=== PATIENT | male | born 1985 | race American Indian/Alaskan Native ===

== ENCOUNTER 2017-10-30 03:07 | Emergency (ER) | payer MEDICAID ==
[2017-10-30 03:20] VITALS: BMI 38.2
--- NOTE | 2017-10-30 03:29 | C.PDOC ---
History Of Present Illness 32 year old male presents to the ER with a complaint of feeling depressed and hearing voices. Patient admits to drug use today; denies physical complaints at this time. Time Seen by Provider: 10/30/17 03:28 Chief Complaint (Nursing): Psychiatric Evaluation History Per: Patient History/Exam Limitations: no limitations Onset/Duration Of Symptoms: Days Current Symptoms Are (Timing): Still Present Suicide/Self Injury Attempted (Context): None Modifying Factor(s): Other (Drugs) Severity: None Pain Scale Rating Of: 0 Associated Symptoms: Depression, Other (hearing voices) Involuntary Hold By: None Recent travel outside of the [place]: No Past Medical History Reviewed: Historical Data, Nursing Documentation, Vital Signs Vital Signs: Last Vital Signs Temp 98.6 F 10/30/17 05:52 Pulse 96 H 10/30/17 05:52 Resp 16 10/30/17 05:52 BP 139/81 10/30/17 05:52 Pulse Ox 100 10/30/17 06:14 - Medical History PMH: Schizophrenia Surgical History: No Surg Hx Family History: States: Unknown Family Hx - Social History Hx Alcohol Use: Yes Hx Substance Use: Yes Review Of Systems Constitutional: Negative for: Fever, Chills Gastrointestinal: Negative for: Nausea, Vomiting, Diarrhea Psych: Positive for: Depression, Other (Hearing voices) Physical Exam - Physical Exam Appears: Non-toxic Skin: Warm, Dry Head: Normacephalic Oral Mucosa: Moist Chest: Symmetrical, No Tenderness Cardiovascular: Rhythm Regular Respiratory: No Rales, No Rhonchi, No Wheezing Gastrointestinal/Abdominal: Soft, No Tenderness Neurological/Psych: Oriented x3 ED Course And Treatment - Laboratory Results Result Diagrams: 10/30/17 03:29 10/30/17 03:29 ECG: Interpreted By Me, Viewed By Me ECG Rhythm: Sinus Rhythm (91), Nonspecific Changes O2 Sat by Pulse Oximetry: 100 (Room air) Pulse Ox Interpretation: Normal - Radiology CXR: Interpreted by Me, Viewed By Me CXR Interpretation: No: Infiltrates, Fracture, Pnemothorax Progress Note: Blood work and urinalysis ordered. Crisis notified. Pt was accepted in transfet to [facility] by dr Moody Disposition Counseled Patient/Family Regarding: Studies Performed, Diagnosis - Disposition Disposition: OTHER INSTITUTION Disposition Time: 03:28 Condition: FAIR Instructions: Schizophrenia (ED), Abuse of Alcohol (ED) Forms: [facility] (Salvadorean) - Clinical Impression Clinical Impression: Alcohol intoxication, Alcohol abuse, Schizophrenia - Scribe Statement The provider has reviewed the documentation as recorded by the Scribsandi Lorenzo All medical record entries made by the Scribe were at my direction and personally dictated by me. I have reviewed the chart and agree that the record accurately reflects my personal performance of the history, physical exam, medical decision making, and the department course for this patient. I have also personally directed, reviewed, and agree with the discharge instructions and disposition. Physician Patient Turnover Patient Signed Over To: Gene Hong DO Handoff Comments: pending transfer to [facility]
[2017-10-30 03:33] LABS: BASO # 0.1 K/uL (0.0-0.2); BASO % 0.8 % (0.0-2.0); HEMATOCRIT 49.9 % (35.0-51.0); LYMPH # 2.5 K/uL (1.0-4.3); LYMPH % 19.9 % (20.0-40.0); MEAN CELL VOLUME 89.6 fL (80.0-94.0); MEAN CORPUSCULAR HEMOGLOBIN 30.2 pg (27.0-31.0); MEAN CORPUSCULAR HGB CONC 33.7 g/dL (33.0-37.0); MEAN PLATELET VOLUME 8.6 fL (7.2-11.7); MONO # 0.9 K/uL (0.0-0.8); MONO % 7.3 % (0.0-10.0); WHITE BLOOD COUNT 12.8 K/uL (4.8-10.8)
[2017-10-30 03:47] LABS: ALB/GLOB RATIO 1.4 (1.0-2.1); ALCOHOL SERUM 66 mg/dl (0-10); ALKALINE PHOSPHATASE 61 U/L (38-126); ALT/SGPT 45 U/L (21-72); AST/SGOT 32 U/L (17-59); BILIRUBIN,TOTAL 0.6 mg/dL (0.2-1.3); BLOOD UREA NITROGEN 11 mg/dL (9-20); CALCIUM 8.7 mg/dl (8.6-10.4); CARBON DIOXIDE 24 mmol/L (22-30); CHLORIDE 106 mmol/L (98-107); GFR AFRICAN-AMERICAN > 60; GLUCOSE,RANDOM 105 mg/dL (75-110); POTASSIUM 3.8 mmol/L (3.6-5.2); SODIUM 145 mmol/L (132-148)
[2017-10-30 04:34] LABS: RBC URINE 1 /hpf (0-3); URINE BILIRUBIN NEGATIVE (NEGATIVE); URINE BLOOD NEGATIVE (NEGATIVE); URINE COLOR Yellow (YELLOW); URINE GLUCOSE (UA) NORMAL (Normal); URINE KETONE TRACE mg/dL (NEGATIVE); URINE LEUKOCYTE ESTERASE NEG Leu/uL (Negative); URINE PROTEIN 1+ mg/dL (NEGATIVE); URINE UROBILINOGEN NORMAL mg/dL (0.2-1.0); WBC URINE 2 /hpf (0-5)
[2017-10-30 07:31] VITALS: RESP 18
--- NOTE | 2017-10-30 09:01 | RAD ---
HISTORY: Medical Clearance COMPARISON: No prior. FINDINGS: LUNGS: The lungs are well inflated and clear. PLEURA: No significant pleural effusion identified, no pneumothorax apparent. CARDIOVASCULAR: Normal. OSSEOUS STRUCTURES: No significant abnormalities. VISUALIZED UPPER ABDOMEN: Normal. OTHER FINDINGS: None. IMPRESSION: No active pulmonary disease.
[2017-10-30 09:40] VITALS: BP 145/92; PULSE 102; TEMP 98; O2SAT 98
--- NOTE | 2017-11-02 12:27 | CARD ---
APPROVED REPORT EKG Measurement Heart [id number] <Conclusion> Normal sinus rhythm Normal ECG
== END 2017-10-30 09:50 | disposition short-term general hospital (02) ==
LOC: C.ER 03:07
DX: F20.9 Schizophrenia, unspecified (principal); F10.129 Alcohol abuse with intoxication, unspecified; Y90.3 Blood alcohol level of 60-79 mg/100 ml

== ENCOUNTER 2017-11-03 19:17 | Inpatient (IN) | payer MEDICAID ==
[2017-11-03 19:17] VITALS: BMI 38.2
[2017-11-03 21:34] LABS: BASO # 0.1 K/uL (0.0-0.2); EOS # 0.1 K/uL (0.0-0.7); EOS % 0.7 % (0.0-4.0); HEMATOCRIT 44.8 % (35.0-51.0); LYMPH # 4.7 K/uL (1.0-4.3); LYMPH % 31.4 % (20.0-40.0); MEAN CELL VOLUME 90.1 fL (80.0-94.0); MEAN CORPUSCULAR HEMOGLOBIN 30.5 pg (27.0-31.0); MEAN CORPUSCULAR HGB CONC 33.9 g/dL (33.0-37.0); MEAN PLATELET VOLUME 8.7 fL (7.2-11.7); MONO # 1.2 K/uL (0.0-0.8); MONO % 7.8 % (0.0-10.0); NRBC % 0.1 % (0.0-2.0); RED CELL DISTRIBUTION WIDTH 13.6 % (11.5-14.5); WHITE BLOOD COUNT 14.9 K/uL (4.8-10.8)
[2017-11-03 21:50] LABS: ALB/GLOB RATIO 1.6 (1.0-2.1); ALCOHOL SERUM 17 mg/dl (0-10); ALKALINE PHOSPHATASE 66 U/L (38-126); ALT/SGPT 47 U/L (21-72); AST/SGOT 32 U/L (17-59); BILIRUBIN,TOTAL 0.6 mg/dL (0.2-1.3); BLOOD UREA NITROGEN 11 mg/dL (9-20); CALCIUM 8.4 mg/dl (8.6-10.4); CARBON DIOXIDE 26 mmol/L (22-30); CHLORIDE 102 mmol/L (98-107); GFR AFRICAN-AMERICAN > 60; GLUCOSE,RANDOM 115 mg/dL (75-110); POTASSIUM 3.3 mmol/L (3.6-5.2); SODIUM 144 mmol/L (132-148); TOTAL PROTEIN 6.9 g/dL (6.3-8.3)
[2017-11-03 23:10] LABS: RBC URINE 1 /hpf (0-3); URINE BACTERIA RARE (<OCC); URINE BILIRUBIN NEGATIVE (NEGATIVE); URINE BLOOD NEGATIVE (NEGATIVE); URINE COLOR Yellow (YELLOW); URINE GLUCOSE (UA) 1+ mg/dL (Normal); URINE KETONE NEGATIVE (NEGATIVE); URINE LEUKOCYTE ESTERASE NEG Leu/uL (Negative); URINE PROTEIN NEGATIVE (NEGATIVE); URINE UROBILINOGEN NORMAL mg/dL (0.2-1.0); WBC URINE 1 /hpf (0-5)
--- NOTE | 2017-11-03 23:49 | C.PDOC ---
Time Seen by Provider: 11/03/17 20:37 Chief Complaint (Nursing): Psychiatric Evaluation History Per: Patient Onset/Duration Of Symptoms: Days Current Symptoms Are (Timing): Still Present Suicide/Self Injury Attempted (Context): None Modifying Factor(s): Alcohol, Marijuana Severity: Moderate Associated Symptoms: Depression, Paranoia, Suicidal Thoughts Additional History Per: Prior Records Past Medical History Reviewed: Historical Data, Nursing Documentation, Vital Signs Vital Signs: Last Vital Signs Temp 97.6 F 11/03/17 19:28 Pulse 111 H 11/03/17 19:28 Resp 20 11/03/17 19:28 BP 128/84 11/03/17 19:28 Pulse Ox 98 11/03/17 19:28 - Medical History PMH: Depression, Schizophrenia Family History: States: Unknown Family Hx - Social History Hx Tobacco Use: Yes Hx Alcohol Use: Yes Hx Substance Use: Yes - Immunization History Hx Tetanus Toxoid Vaccination: No Hx Influenza Vaccination: No Hx Pneumococcal Vaccination: No Review Of Systems Except As Marked, All Systems Reviewed And Found Negative. Constitutional: Negative for: Fever Cardiovascular: Negative for: Chest Pain Respiratory: Negative for: Shortness of Breath Gastrointestinal: Negative for: Vomiting, Abdominal Pain Musculoskeletal: Negative for: Neck Pain Skin: Negative for: Rash Neurological: Negative for: Weakness, Numbness Psych: Positive for: Psychosis Physical Exam - Physical Exam Appears: Non-toxic, No Acute Distress Skin: Normal Color, Warm, Dry, No Rash Head: Atraumatic, Normacephalic Eye(s): bilateral: PERRL, EOMI Neck: Normal ROM, Supple Cardiovascular: Rhythm Regular Respiratory: Normal Breath Sounds, No Accessory Muscle Use Gastrointestinal/Abdominal: Soft, No Tenderness Back: No CVA Tenderness Extremity: Normal ROM Neurological/Psych: Oriented x3, Normal Motor, Normal Sensation ED Course And Treatment - Laboratory Results Result Diagrams: 11/03/17 21:30 11/03/17 21:30 O2 Sat by Pulse Oximetry: 98 Pulse Ox Interpretation: Normal Progress Note: Pt is medically stable for psychiatric admission. Disposition Counseled Patient/Family Regarding: Studies Performed, Diagnosis, Smoking Cessation - Disposition Disposition: HOSPITALIZED Disposition Time: 23:49 Condition: STABLE - Clinical Impression Clinical Impression: Schizoaffective disorder Decision To Admit - Pt Status Changed To: Hospital Disposition Of: Inpatient - Admit Certification Admit to Inpatient:: After my assessment, the patient will require hospitalization for at least two midnights. This is because of the severity of symptoms shown, intensity of services needed, and/or the medical risk in this patient being treated as an outpatient. - InPatient: Physician Admission Certification: I certify that this patient requires 2 or more midnights of care for the following reason:: Psych. - . Bed Request Type: Psychiatry Admitting Physician: Jacquie Duval Patient Diagnosis: Schizoaffective disorder
[2017-11-04 03:50] VITALS: BP 134/84; PULSE 74; RESP 18; TEMP 97.4; O2SAT 99
[2017-11-04] MEDS ORDERED: Potassium Chloride 20 mEq ER Tab PO ONE (03:54)
[2017-11-04] MEDS ORDERED: Potassium Chloride 10 mEq ER Tab PO STA (03:54)
--- NOTE | 2017-11-04 04:16 | PCM.BM ---
Treatment Plan Problems - Problems identified on initial assessmt Suicidal Ideation Date Initiated: 11/04/17 Time Initiated: 04:10 Assessment reference: NA Status: Active Depression Date Initiated: 11/04/17 Time Initiated: 04:10 Assessment reference: NA Status: Active Auditory Hallucinations Date Initiated: 11/04/17 Time Initiated: 04:10 Assessment reference: NA Status: Active Substance Abuse Date Initiated: 11/04/17 Time Initiated: 04:10 Assessment reference: NA Status: Active Treatment assets and liabiliti Patient Assests: cooperative, ADL independent, negotiates basic needs Patient Liabilities: live alone, financial problems, substance abuse - Milieu Protocol Maintain good personal hygiene: daily Encourage regular showers, daily Remind patient to perform daily oral care, daily Assist patient to perform ADL's Conduct patient checks and document Observation sheet: Q15 minutes Maintain personal safety: every shift Educate patient to report safety concerns to staff, every shift Monitor environment for contraband/sharps Medication safety: Monitor for expected outcome, potential side effects: every shift, Assess barriers to learning: every shift, Assess readiness for medication education: every shift
[2017-11-07] MEDS ORDERED: Influenza Vaccine 60 mcg/0.5 mL SYR (4YR UP) IM ONE (10:00)
[2017-11-07] MEDS ORDERED: Pneumococcal 23-Valent Vaccine IM ONE (10:00)
== END 2017-11-04 17:00 | disposition left against medical advice (07) | DRG 430 ==
LOC: C.ER 19:17 → C.9E 23:49 → C.5E 11-04 03:44
PROVIDERS: ADMIT Psychiatry & Neurology Psychiatry; ATTEND Psychiatry & Neurology Psychiatry
DX: F25.9 Schizoaffective disorder, unspecified (principal); R45.851 Suicidal ideations; Z87.891 Personal history of nicotine dependence

== ENCOUNTER 2017-11-07 02:37 | Emergency (ER) | payer MEDICAID ==
[2017-11-07 02:37] VITALS: BMI 38.2
[2017-11-07 03:42] LABS: BASO # 0.1 K/uL (0.0-0.2); BASO % 0.4 % (0.0-2.0); EOS # 0.2 K/uL (0.0-0.7); EOS % 1.8 % (0.0-4.0); HEMATOCRIT 42.1 % (35.0-51.0); LYMPH # 3.8 K/uL (1.0-4.3); LYMPH % 33.3 % (20.0-40.0); MEAN CORPUSCULAR HEMOGLOBIN 30.8 pg (27.0-31.0); MEAN CORPUSCULAR HGB CONC 34.3 g/dL (33.0-37.0); MEAN PLATELET VOLUME 8.5 fL (7.2-11.7); RED CELL DISTRIBUTION WIDTH 13.6 % (11.5-14.5); WHITE BLOOD COUNT 11.4 K/uL (4.8-10.8)
[2017-11-07 04:06] LABS: BLOOD UREA NITROGEN 11 mg/dL (9-20); GFR AFRICAN-AMERICAN > 60; GLUCOSE,RANDOM 88 mg/dL (75-110); POTASSIUM 3.5 mmol/L (3.6-5.2); SODIUM 139 mmol/L (132-148)
[2017-11-07 04:07] LABS: ALB/GLOB RATIO 1.6 (1.0-2.1); BILIRUBIN,TOTAL 0.8 mg/dL (0.2-1.3); CARBON DIOXIDE 23 mmol/L (22-30); CHLORIDE 105 mmol/L (98-107); TOTAL PROTEIN 6.3 g/dL (6.3-8.3)
[2017-11-07 04:08] LABS: ALCOHOL SERUM < 10 mg/dl (0-10); ALKALINE PHOSPHATASE 70 U/L (38-126); ALT/SGPT 56 U/L (21-72); AST/SGOT 43 U/L (17-59)
[2017-11-07 04:54] VITALS: BP 126/78; PULSE 76; RESP 18; TEMP 99.1; O2SAT 98
--- NOTE | 2017-11-07 05:47 | C.PDOC ---
History Of Present Illness 32 year old male presents to the ER stating he is hearing voices and has thoughts of suicide. Patient denies physical complaints a this time. As per crisis patient was administratively discharged 3 days ago from the psychiatric floor for threatening behavior towards staff. Patient also recently went to [facility] [facility] where he was discharged. Chief Complaint (Nursing): Psychiatric Evaluation History Per: Patient History/Exam Limitations: no limitations Onset/Duration Of Symptoms: Days Current Symptoms Are (Timing): Still Present Suicide/Self Injury Attempted (Context): None Associated Symptoms: Suicidal Thoughts, Other (Hearing voices). denies: Depression Involuntary Hold By: None Recent travel outside of the [place]: No Past Medical History Reviewed: Historical Data, Nursing Documentation, Vital Signs Vital Signs: Last Vital Signs Temp 99.1 F 11/07/17 04:53 Pulse 76 11/07/17 04:53 Resp 18 11/07/17 04:53 BP 126/78 11/07/17 04:53 Pulse Ox 98 11/07/17 05:52 - Medical History PMH: Depression, Schizophrenia Family History: States: Unknown Family Hx - Social History Hx Tobacco Use: Yes Hx Alcohol Use: Yes Hx Substance Use: Yes - Immunization History Hx Tetanus Toxoid Vaccination: No Hx Influenza Vaccination: No Hx Pneumococcal Vaccination: No Review Of Systems Constitutional: Negative for: Fever, Chills Cardiovascular: Negative for: Chest Pain Respiratory: Negative for: Shortness of Breath Gastrointestinal: Negative for: Nausea, Vomiting Psych: Positive for: Suicidal ideation, Other (Hearing voices) Physical Exam - Physical Exam Appears: Non-toxic, No Acute Distress Skin: Normal Color, Warm, Dry Head: Atraumatic, Normacephalic Eye(s): bilateral: Normal Inspection Oral Mucosa: Moist Chest: Symmetrical, No Tenderness Cardiovascular: Rhythm Regular Respiratory: Normal Breath Sounds, No Rales, No Rhonchi, No Wheezing Gastrointestinal/Abdominal: Soft, No Tenderness Neurological/Psych: Oriented x3, Normal Speech ED Course And Treatment - Laboratory Results Result Diagrams: 11/07/17 03:30 11/07/17 03:30 O2 Sat by Pulse Oximetry: 98 (room air) Pulse Ox Interpretation: Normal Progress Note: Blood work and urinalysis ordered. Crisis notified. Disposition - Disposition Referrals: [facility] [Outside] [facility] [Outside] Disposition: HOME/ ROUTINE Disposition Time: 03:30 Condition: GOOD Additional Instructions: Thank you for letting us take care of you today. The emergency medical care you received today was directed at your acute symptoms. If you were prescribed any medication, please fill it and take as directed. It may take several days for your symptoms to resolve. Return to the Emergency Department if your symptoms worsen, do not improve, or if you have any other problems. Please contact your doctor or call one of the physicians/clinics you have been referred to that are listed on the Patient Visit Information form that is included in your discharge packet. Bring any paperwork you were given at discharge with you along with any medications you are taking to your follow up visit. Our treatment cannot replace ongoing medical care by a primary care provider (PCP) outside of the emergency department. Thank you for allowing the [facility] team to be part of your care today. Follow up in the clinic in 3-5 days for outpatient care and further management. Instructions: Depression (ED) Forms: [facility] (Sami) - Clinical Impression Clinical Impression: Schizoaffective disorder - Scribe Statement The provider has reviewed the documentation as recorded by the Scribsandi Lorenzo All medical record entries made by the Scribe were at my direction and personally dictated by me. I have reviewed the chart and agree that the record accurately reflects my personal performance of the history, physical exam, medical decision making, and the department course for this patient. I have also personally directed, reviewed, and agree with the discharge instructions and disposition.
== END 2017-11-07 05:09 | disposition home or self-care (01) ==
LOC: C.ER 02:37
DX: F25.9 Schizoaffective disorder, unspecified (principal)

== ENCOUNTER 2019-02-07 20:33 | Emergency (ER) | payer MEDICAID ==
[2019-02-07 20:35] VITALS: BMI 38.2
--- NOTE | 2019-02-07 23:43 | C.PDOC ---
History Of Present Illness 33 year old male is brought to the ED by EMS for public intoxication. Patient was picked up intoxicated in the street, patient admits to drinking alcohol today. Patient denies SI/HI, hallucinations, injury, fall, trauma. Time Seen by Provider: 02/07/19 20:47 Chief Complaint (Nursing): Substance Abuse History Per: Patient, EMS History/Exam Limitations: intoxication Onset/Duration Of Symptoms: Hrs Current Symptoms Are (Timing): Still Present Suicide/Self Injury Attempted (Context): None Modifying Factor(s): Alcohol Associated Symptoms: denies: Depression, Suicidal Thoughts, Suicidal Plan Recent travel outside of the [place]: No Additional History Per: Patient, EMS Past Medical History Reviewed: Historical Data, Nursing Documentation, Vital Signs Vital Signs: Last Vital Signs Temp 98.3 F 02/07/19 22:41 Pulse 89 02/07/19 22:41 Resp 20 02/07/19 22:41 BP 123/71 02/07/19 22:41 Pulse Ox 98 02/07/19 22:41 - Medical History PMH: Depression, Schizophrenia Denies: Diabetes, Hepatitis, HIV, HTN, Chronic Kidney Disease, Seizures, Sexually Transmitted Disease Surgical History: No Surg Hx - [facility] Procedures GROUP PSYCHOTHERAPY (11/13/17) INDIV PSYCHOTHERAPY FOR SUBSTANCE ABUSE, COGNITIV BEHAVIORAL (11/13/17) INDIVIDUAL PSYCHOTHERAPY, COGNITIVE-BEHAVIORAL (11/13/17) Family History: States: Unknown Family Hx - Social History Hx Tobacco Use: Yes Hx Alcohol Use: Yes Hx Substance Use: Yes - Immunization History Hx Tetanus Toxoid Vaccination: No Hx Influenza Vaccination: No Hx Pneumococcal Vaccination: No Review Of Systems Constitutional: Negative for: Fever, Chills Eyes: Negative for: Vision Change Cardiovascular: Negative for: Chest Pain Respiratory: Negative for: Shortness of Breath Gastrointestinal: Negative for: Nausea, Vomiting, Abdominal Pain Skin: Negative for: Rash Neurological: Negative for: Weakness, Numbness Psych: Negative for: Depression, Suicidal ideation Physical Exam - Physical Exam Appears: Non-toxic, No Acute Distress, Other (intoxicated) Skin: Normal Color, Warm, Dry Head: Atraumatic, Normacephalic Eye(s): bilateral: Normal Inspection Neck: Normal ROM, Supple Chest: Symmetrical Cardiovascular: Rhythm Regular Respiratory: Normal Breath Sounds, No Rales, No Rhonchi, No Wheezing Gastrointestinal/Abdominal: Soft, No Tenderness Extremity: Normal ROM, No Tenderness Neurological/Psych: Oriented x3, Other (intoxicated) Gait: Steady ED Course And Treatment O2 Sat by Pulse Oximetry: 98 (ON RA) Pulse Ox Interpretation: Normal Medical Decision Making Medical Decision Making: Assessment: Alcohol intoxication Disposition Discussed With : Tanvir Yuan - Disposition Disposition Time: 23:55 Condition: STABLE Forms: [facility] (Citizen Of [place]) - Clinical Impression Clinical Impression: Alcohol intoxication - Scribe Statement The provider has reviewed the documentation as recorded by the Scribe Titus Morin All medical record entries made by the Scribe were at my direction and personally dictated by me. I have reviewed the chart and agree that the record accurately reflects my personal performance of the history, physical exam, medical decision making, and the department course for this patient. I have also personally directed, reviewed, and agree with the discharge instructions and disposition. Physician Patient Turnover Patient Signed Over To: Tanvir Yuan Handoff Comments: Pending sobriety and dispo
[2019-02-08 05:50] VITALS: BP 133/73; PULSE 86; RESP 20; TEMP 98; O2SAT 98
== END 2019-02-08 05:50 | disposition home or self-care (01) ==
LOC: C.ER 20:33
DX: F10.129 Alcohol abuse with intoxication, unspecified (principal); Y90.9 Presence of alcohol in blood, level not specified

== ENCOUNTER 2019-02-25 17:43 | Emergency (ER) | payer MEDICAID ==
[2019-02-25 18:02] VITALS: BMI 37.3
[2019-02-25 18:11] VITALS: BP 120/84; PULSE 93; RESP 19; TEMP 98.9; O2SAT 98
== END 2019-02-25 18:35 | disposition left against medical advice (07) ==
LOC: C.ER 17:43
DX: Z02.89 Encounter for other administrative examinations (principal); R44.0 Auditory hallucinations

== ENCOUNTER 2019-03-21 23:20 | Inpatient (IN) | payer MEDICAID, OTHER ==
[2019-03-21 23:21] VITALS: BMI 37.3
--- NOTE | 2019-03-21 23:38 | C.PDOC ---
History Of Present Illness Patient presents as a transfer from [facility] where is was medically cleared and accepted in transfer for psych admission. No physical complaints at this time. Time Seen by Provider: 03/21/19 23:38 Chief Complaint (Nursing): Psychiatric Evaluation History Per: Other ([facility]) History/Exam Limitations: no limitations Onset/Duration Of Symptoms: Hrs Current Symptoms Are (Timing): Still Present Severity: None Pain Scale Rating Of: 0 Involuntary Hold By: None Recent travel outside of the [place]: No Past Medical History Reviewed: Historical Data, Nursing Documentation, Vital Signs Vital Signs: Last Vital Signs Temp 98.4 F 03/21/19 23:26 Pulse 68 03/21/19 23:26 Resp 16 03/21/19 23:26 BP 133/74 03/21/19 23:26 Pulse Ox 97 03/21/19 23:26 - Medical History PMH: Anxiety, Bipolar Disorder, Depression, Schizophrenia Denies: Diabetes, Hepatitis, HIV, HTN, Chronic Kidney Disease, Seizures, Sexually Transmitted Disease - [facility] Procedures GROUP PSYCHOTHERAPY (11/13/17) INDIV PSYCHOTHERAPY FOR SUBSTANCE ABUSE, COGNITIV BEHAVIORAL (11/13/17) INDIVIDUAL PSYCHOTHERAPY, COGNITIVE-BEHAVIORAL (11/13/17) MEDICATION MANAGEMENT (03/14/19) Family History: States: No Known Family Hx - Social History Hx Tobacco Use: Yes Hx Alcohol Use: Yes Hx Substance Use: Yes (MARIJUANA, COCAINE) - Immunization History Hx Tetanus Toxoid Vaccination: No Hx Influenza Vaccination: No Hx Pneumococcal Vaccination: No Review Of Systems Constitutional: Negative for: Fever, Chills Cardiovascular: Negative for: Chest Pain, Palpitations Respiratory: Negative for: Cough, Shortness of Breath Gastrointestinal: Negative for: Nausea, Vomiting Neurological: Negative for: Weakness, Numbness Physical Exam - Physical Exam Appears: Non-toxic Skin: Warm, Dry Head: Normacephalic Oral Mucosa: Moist Chest: Symmetrical, No Tenderness Cardiovascular: Rhythm Regular Respiratory: No Rales, No Rhonchi, No Wheezing Gastrointestinal/Abdominal: Soft, No Tenderness Neurological/Psych: Oriented x3 ED Course And Treatment O2 Sat by Pulse Oximetry: 97 (room air) Pulse Ox Interpretation: Normal Disposition Discussed With : Ayah Finney Comment: accepted the pt on his service and took over the care at 11:40 PM Doctor Will See Patient In The: Hospital Counseled Patient/Family Regarding: Studies Performed, Diagnosis - Disposition Disposition: HOSPITALIZED Disposition Time: 23:38 Condition: FAIR Forms: [facility] (Polish) - POA Present On Arrival: None - Clinical Impression Clinical Impression: Major depression - Scribe Statement The provider has reviewed the documentation as recorded by the Scribe Felix Lorenzo All medical record entries made by the Scribe were at my direction and personally dictated by me. I have reviewed the chart and agree that the record accurately reflects my personal performance of the history, physical exam, medical decision making, and the department course for this patient. I have also personally directed, reviewed, and agree with the discharge instructions and disposition. Decision To Admit - Pt Status Changed To: Hospital Disposition Of: Inpatient - Admit Certification Admit to Inpatient:: After my assessment, the patient will require hospitalization for at least two midnights. This is because of the severity of symptoms shown, intensity of services needed, and/or the medical risk in this patient being treated as an outpatient. - InPatient: Physician Admission Certification: I certify that this patient requires 2 or more midnights of care for the following reason:: After my assessment, the patient will require hospitalization for at least two midnights. This is because of the severity of symptoms shown, intensity of services needed, and/or the medical risk in this patient being treated as an outpatient. - . Bed Request Type: Psychiatry Admitting Physician: Ayah Finney Patient Diagnosis: Major depression
[2019-03-21 23:45] VITALS: RESP 16; O2SAT 97
--- NOTE | 2019-03-22 01:56 | PCM.BM ---
Treatment Plan Problems - Problems identified on initial assessmt INEFFECTIVE COPING Date Initiated: 03/22/19 Time Initiated: 00:25 Assessment reference: NA Status: Active MEDICATION NON-ADHERENCE Date Initiated: 03/22/19 Time Initiated: 00:25 Assessment reference: NA Status: Active Treatment assets and liabiliti Patient Assests: cooperative, self-reliant, ADL independent, negotiates basic needs Patient Liabilities: live alone, physical pain, financial problems, poor support system, substance abuse - Milieu Protocol Maintain good personal hygiene: daily Encourage regular showers, daily Remind patient to perform daily oral care, daily Assist patient to perform ADL's Conduct patient checks and document Observation sheet: Q15 minutes Maintain personal safety: every shift Educate patient to report safety concerns to staff, every shift Monitor environment for contraband/sharps Medication safety: Monitor for expected outcome, potential side effects: every shift, Assess barriers to learning: every shift, Assess readiness for medication education: every shift
[2019-03-22 07:51] VITALS: BP 128/91; PULSE 67; TEMP 97.4
--- NOTE | 2019-03-22 23:58 | PCM.PSYCH ---
Initial Psychiatric Evaluation - Initial Psychiatric Evaluation Type of Admission: Voluntary Legal Status: Capacity Chief Complaint (in patient's own words): "I was having suicidal thoughts" Patient's Reaction to Hospitalization: Patient is a 34-year-old single male with who was referred from [facility] for command auditory hallucinations with suicidal ideation but no plan, he has a long history of mental illness most likely schizoaffective disorder versus schizophrenia, and multiple admissions to psychiatric inpatient units, history of noncompliance with medications and treatment recommendations Patient was seen and examined today in his room, patient refused to get out of the bed and had his head covered with the blanket during evaluation. Patient presented to be irritable, paranoid, was giving only yes or no answers, angry demeanor. Patient reports that he was taking Davy and haldol but these medications made his feet swell, so he stopped taking them. [employer] Work[employer] discussed treatment option, patient but he declined treatment options. Patient reports using cocaine 5 days ago and marijuana as well. He also reports occassional alcohol use. He is single, never and has no children. As per chart, patient has a history of numerous psychiatric admissions both voluntary and involuntary. Patient denies having any history of suicide attempts. Medical history: Patient complained of lower extremity pain and swelling when he takes Davy and Haldol. Family history: Unknown Current Medications: Active Medications Generic Name Dose Route Start Last Admin Trade Name Freq PRN Reason Stop Dose Admin Hydroxyzine HCl 25 mg 03/22/19 22:39 Atarax PO Q6H PRN Anxiety Pneumococcal Polyvalent Vaccine 0.5 ml 03/23/19 10:00 Pneumovax 23 Vaccine IM 03/23/19 10:01 .ONCE ONE Past Psychiatric History - Past Psychiatric History Pertinent Medical Hx (Current Medical&Sleep Prob, Allergies): Allergies Allergy/AdvReac Type Severity Reaction Status Date / Time No Known Allergies Allergy Verified 03/14/19 02:27 No Known Home Med 03/10/19 Review of Systems - Psychiatric Psychiatric: As Per HPI, Abnormal Sleep Pattern, Anxiety, Auditory Hallucinations, Behavioral Changes, Depression, Suicidal Ideation Mental Status Examination - Personal Presentation Personal Presentation: Looks older than stated age - Affect Affect: Constricted - Motor Activity Motor Activity: Calm - Reliability in Providing Information Reliability in Providing Information: Fair - Speech Speech: Coherent - Mood Mood: Depressed - Formal Thought Process Formal Thought Process: No Impairment - Obsessions/Compulsions Obsessions: No Compulsions: No - Cognitive Functions Orientation: Person, Place, Situation, Time Sensorium: Alert Attention/Concentration: Attentive Judgement: Imparied, as evidence by: Poor judgement - Risk Risk: Suicidal DSM 5 DX - DSM 5 DSM 5 Diagnosis: Schizoaffective Disorder, Bipolar Type Cocaine Use Disorder Cannabis Use Disorder] - Recommended/Plan of Treatment Treatment Recommendations and Plan of Treatment: Start medication once patient agrees to psychotropic medications As need medications - Atarax All risks, benefits and alternatives of the meds discussed, and the pt agreed and understood. Attend groups and activities Individual therapy daily Psychoeducation and support daily Encourage compliance with meds and after care Refer to outpatient program Teach healthy lifestyle methods, i.e. diet, exercise, meditation Smoking cessation and patch if needed 34 min Projected ELOS: 5-7 days
[2019-03-23] MEDS ORDERED: Pneumococcal 23-Valent Vaccine IM ONE (10:00)
--- NOTE | 2019-03-23 23:26 | PCM.PYCHDC ---
Mental Status Examination - Mental Status Examination Orientation: Person, Place, Situation, Time Memory: Intact Mood: Neutral Affect: Broad Speech: Appropriate Attention: WNL Concentration: WNL Association: WNL Fund of Knowledge: WNL Formal Thought Process: No Impairment Suicidal Ideation: No Current Homicidal Ideation?: No Discharge Summary - Discharge Note Reason for Hospitalization: Depression Consultations:: List each consultation separately and include: 1. Reason for request. 2. Findings. 3. Follow-up Summary of Hospital Course include:: 1. Description of specific treatment plan utilized for patients during their course of treatmen. 2. Summarize the time- course for resolution of acute symptoms and/or regressed behaviors. 3. Describe issues identified and worked on during hospitalization. 4. Describe medication utilized. 5. Describe medical problems identified and treated. 6. Reassessment of suicide risk - Final Diagnosis (DSM 5) Condition upon Discharge: FAIR Follow-up Treatment Plan: Patient currently denies suicidal ideation, he also denies any delusions, hallucinations, paranoid. The risks of leaving AMA were discussed with patient including worsening of symptoms, patient understood but still left AMA. - Smoking Cessation Smoking Cessation Medication prescribed: No - Antipsychotic Medications Pt discharged on 2 or more routine antipsychotic medications: No
== END 2019-03-23 12:25 | disposition left against medical advice (07) | DRG 750 ==
LOC: C.ER 23:20 → C.5E 23:39
PROVIDERS: ADMIT Psychiatry & Neurology Psychiatry; ATTEND Psychiatry & Neurology Psychiatry
PROC: GZ3ZZZZ Medication Management (ICD-10-PCS; principal; 2019-03-21)
PROC: GZHZZZZ Group Psychotherapy (ICD-10-PCS; 2019-03-21)
PROC: GZ56ZZZ Individual Psychotherapy, Supportive (ICD-10-PCS; 2019-03-21)
DX: F25.0 Schizoaffective disorder, bipolar type (principal); R45.851 Suicidal ideations; F14.10 Cocaine abuse, uncomplicated; F12.10 Cannabis abuse, uncomplicated; F17.210 Nicotine dependence, cigarettes, uncomplicated